=== PATIENT | male | born 1955 | race Asian ===

== ENCOUNTER 2020-05-07 14:53 | Emergency (ER) | payer OTHER ==
[~2020-05-07] VITALS: Ht 188 cm; Wt 87.5 kg
[2020-05-07 15:00] VITALS: BP 97/67; TEMP 98.5
[2020-05-07 15:47] LABS: PLATELET COUNT 287 K/uL (142-355)
[2020-05-07 15:52] LABS: POTASSIUM 4.6 mmol/L (3.6-5.2)
[2020-05-07] MEDS ORDERED: INVEGA SUS234 MG/1.5 IM (17:50)
[2020-05-07] MEDS ORDERED: TAMSULOSIN0.4 MG PO (17:51)
[2020-05-07] MEDS ORDERED: DIVA500T2 PO (17:54)
[2020-05-07] MEDS ORDERED: TYLENOL325 MG PO (17:58)
[2020-05-07] MEDS ORDERED: ALLERGY RELIEF10 M3 PO (18:00)
[2020-05-07] MEDS ORDERED: OLANZAPINE5 M1 PO (18:01)
[2020-05-07] MEDS ORDERED: MELATONIN10 M1 PO (18:05)
== END 2020-05-07 16:50 | disposition other institution (70) ==
LOC: ED 14:53
PROVIDERS: Family Medicine
DX: R46.89 Other symptoms and signs involving appearance and behavior (principal); Z91.14 Patient's other noncompliance with medication regimen; F20.89 Other schizophrenia; Z11.59 Encounter for screening for other viral diseases; Z04.6 Encounter for general psychiatric examination, requested by authority
CPT/HCPCS: 80053; 85027; 87635; 93005; 99283; 99285; U0003

== ENCOUNTER 2021-11-03 20:08 | Emergency (ER) | payer OTHER ==
[~2021-11-03] VITALS: Ht 188 cm; Wt 81.2 kg
[~2021-11-03 20:08] MED LIST: ACET-206 PO; ALLERGY RELIEF10 M3 PO; ATOR20TA2 PO; CHOL100034 PO; DIVA500T2 PO; HALO50IN4 IM; INVEGA SUS234 MG/1.5 IM; LORA10TA3 PO; MAGNSUS68 PO; MELATONIN10 M1 PO; OLANZAPINE10 MG PO; OLANZAPINE5 M1 PO; OLANZAPINE5 MG PO; TAMSULOSIN0.4 MG PO; TYLENOL325 MG PO
[2021-11-03 20:10] VITALS: BP 113/69; TEMP 98
[2021-11-03 20:43] LABS: PLATELET COUNT 294 K/uL (142-355)
[2021-11-04] MEDS ORDERED: DOCU100C10 PO (04:14)
[2021-11-04] MEDS ORDERED: ASPIRIN REGULA325 MG PO (04:15)
[2021-11-04] MEDS ORDERED: OLANZAPINE10 MG PO (04:17)
[2021-11-04] MEDS ORDERED: OLANZAPINE5 MG PO (04:17)
[2021-11-04] MEDS ORDERED: MELATONIN5 MG PO (04:19)
[2021-11-04] MEDS ORDERED: TRAZ50TA36 PO (04:20)
[2021-11-04] MEDS ORDERED: DEPAKOTE DR PO ×2 (04:21→04:24)
[2021-11-04] MEDS ORDERED: LORA1TAB17 PO (04:22)
[2021-11-04] MEDS ORDERED: GNP CLEARLAX17 GM PO (04:23)
[2021-11-04] MEDS ORDERED: INVEGA6 MG PO ×2 (04:31→08:40)
== END 2021-11-03 22:24 | disposition still patient (30) ==
LOC: ED 20:08
PROVIDERS: Emergency Medicine Emergency Medical Services
DX: R46.89 Other symptoms and signs involving appearance and behavior (principal); F20.89 Other schizophrenia; Z11.52 Encounter for screening for COVID-19; Z04.6 Encounter for general psychiatric examination, requested by authority
CPT/HCPCS: 36415; 80053; 85027; 87635; 93005; 99283; U0003